=== PATIENT | male | born 1970 | race African-American/Black ===

== ENCOUNTER 2020-02-24 10:22 | Inpatient (IN) | payer MEDICAID, OTHER ==
[~2020-02-24] VITALS: Ht 185.4 cm; Wt 128.4 kg
[2020-02-24 12:03] LABS: BASOPHILS % 0.4 % (0.0-2.0); EOSINOPHILS % 0.1 % (0.0-5.0); HEMATOCRIT. 42.9 % (42.0-52.0); HEMOGLOBIN. 14.4 g/dL (14.0-18.0); LYMPHOCYTES % 14.3 % (20.0-50.0); MEAN CORPUSCULAR HEMOGLOBIN 30.6 pg (28.0-32.0); MEAN CORPUSCULAR VOLUME 91.2 fL (80.0-94.0); MONOCYTES % 9.6 % (2.0-8.0); NEUTROPHILS % 75.6 % (40.0-76.0); RED BLOOD CELL COUNT 4.71 mill/uL (4.7-6.1); RED CELL DISTRIBUTION WIDTH 13.8 % (11.6-14.6)
[2020-02-24 12:11] LABS: INR 1.4; PROTHROMBIN TIME 15.4 sec (9.6-11.0)
[2020-02-24] MEDS ORDERED: SODIUM CHLORIDE 0.9% 1,000 ML IV ONE (12:12)
[2020-02-24] MEDS ORDERED: HYDROCODONE/ACETAMINOPHEN 5/325MG TABLET PO ONE (12:15)
[2020-02-24 12:36] LABS: PLATELET 228 x1000/uL (130-400)
[2020-02-24] MEDS ORDERED: ONDANSETRON HCL 4MG/2ML INJ IV PRN (14:15)
[2020-02-24 14:19] LABS: CLARITY URINE CLEAR (CLEAR); COLOR URINE DARK YELLOW (YELLOW); KETONES URINE NEGATIVE (NEGATIVE); LEUKOCYTE ESTERASE URINE NEGATIVE (NEGATIVE); NITRITE URINE NEGATIVE (NEGATIVE); OCCULT BLOOD URINE NEGATIVE (NEGATIVE); PROTEIN URINE 1+ (NEGATIVE); SPECIFIC GRAVITY URINE 1.022 (1.005-1.030)
[2020-02-24 14:32] LABS: CHLORIDE 103 mEq/L (98-107)
[2020-02-24 14:42] LABS: CREATINE KINASE 57 IU/L (39-308)
[2020-02-24 14:48] LABS: *BARBITURATES SCREEN URINE NEGATIVE (NEGATIVE); *COCAINE SCREEN URINE NEGATIVE (NEGATIVE)
[2020-02-24 14:49] LABS: CANNABINOID URINE SCREEN PRESUMTIVE POSITIVE (NEGATIVE); METHADONE URINE SCREEN NEGATIVE (NEGATIVE); PHENCYCLIDINE URINE SCREEN NEGATIVE (NEGATIVE)
[2020-02-24 14:50] LABS: *AMPHETAMINES SCREEN URINE NEGATIVE (NEGATIVE); *BENZODIAZEPINES SCREEN URINE NEGATIVE (NEGATIVE); OPIATES URINE SCREEN NEGATIVE (NEGATIVE)
[2020-02-24] MEDS ORDERED: HEPARIN 5000 UNITS/ML VIAL IV ONE (15:00)
[2020-02-24] MEDS ORDERED: HEPARIN 5000 UNITS/ML VIAL IV PRN (15:00)
[2020-02-24] MEDS ORDERED: CEFTRIAXONE 1 G PREMIX 50 ML IV SCH (15:00)
[2020-02-24] MEDS: HEPARIN 25,000 UNITS PREMIX 500 ML IV PRN (15:01)
[2020-02-24] MEDS ORDERED: ALBUTEROL 6.7GM HFA INHALER ORI SCH (17:00)
[2020-02-24 20:30] VITALS: BP 131/85
[2020-02-24] MEDS ORDERED: IOHEXOL-350 100 ML BOTTLE ONE ×2 (22:31→23:08)
[2020-02-24 23:49] LABS: PARTIAL THROMBOPLASTIN TIME 40.5 sec (23.4-31.0)
[2020-02-25] VITALS: BP 116/85
[2020-02-25] MEDS: HEPARIN 5000 UNITS/ML VIAL IV PRN ×2 (00:11→18:58)
[2020-02-25 04:00] VITALS: BP 131/85
[2020-02-25] MEDS: HEPARIN 25,000 UNITS PREMIX 500 ML IV PRN ×3 (07:37→21:45)
[2020-02-25 07:40] LABS: BASOPHILS % 0.4 % (0.0-2.0); EOSINOPHILS % 0.6 % (0.0-5.0); HEMOGLOBIN. 12.9 g/dL (14.0-18.0); LYMPHOCYTES % 21.4 % (20.0-50.0); MEAN CORPUSCULAR HEMOGLOBIN 30.7 pg (28.0-32.0); MEAN CORPUSCULAR VOLUME 90.4 fL (80.0-94.0); MEAN PLATELET VOLUME 9.2 fl (7.4-10.4); MONOCYTES % 5.5 % (2.0-8.0); NEUTROPHILS % 72.1 % (40.0-76.0); PLATELET 250 x1000/uL (130-400); RED CELL DISTRIBUTION WIDTH 14.1 % (11.6-14.6)
[2020-02-25 07:52] LABS: CHLORIDE 99 mEq/L (98-107)
[2020-02-25 08:50] VITALS: BP 136/92
[2020-02-25] MEDS ORDERED: FUROSEMIDE 40MG/4ML VIAL IVP NR (09:45)
[2020-02-25] MEDS: CEFTRIAXONE 1 G PREMIX 50 ML IV SCH (09:58)
[2020-02-25] MEDS: ACETAMINOPHEN 325MG TABLET PO PRN (09:59)
[2020-02-25] MEDS: AZITHROMYCIN 500 MG TABLET PO SCH (11:26)
[2020-02-25] MEDS: HYDROCODONE/ACETAMINOPHEN 10/325MG TABLET PO PRN (12:00)
[2020-02-25 12:13] VITALS: BP 127/86
[2020-02-25 14:23] LABS: HEPATITIS B SURFACE ANTIGEN NEGATIVE
[2020-02-25 14:53] LABS: HEPATITIS A AB IGM NEGATIVE (NEGATIVE)
[2020-02-25 16:00] VITALS: BP 127/66
[2020-02-25 20:00] VITALS: BP 131/68
[2020-02-26] VITALS: BP 108/63
[2020-02-26] MEDS: HYDROCODONE/ACETAMINOPHEN 10/325MG TABLET PO PRN ×2 (00:16→15:07)
[2020-02-26 04:00] VITALS: BP 104/68
[2020-02-26 06:25] LABS: BASOPHILS % 0.3 % (0.0-2.0); EOSINOPHILS % 0.5 % (0.0-5.0); HEMOGLOBIN. 12.9 g/dL (14.0-18.0); MEAN CORPUSCULAR HEMOGLOBIN 30.8 pg (28.0-32.0); MEAN CORPUSCULAR VOLUME 90.9 fL (80.0-94.0); MEAN PLATELET VOLUME 9.2 fl (7.4-10.4); NEUTROPHILS % 69.2 % (40.0-76.0); PLATELET 252 x1000/uL (130-400); RED BLOOD CELL COUNT 4.18 mill/uL (4.7-6.1)
[2020-02-26 07:17] LABS: CHLORIDE 99 mEq/L (98-107)
[2020-02-26 08:00] VITALS: BP 116/84
[2020-02-26] MEDS: FUROSEMIDE 40MG/4ML VIAL IVP SCH (09:40)
[2020-02-26] MEDS: AZITHROMYCIN 500 MG TABLET PO SCH (09:40)
[2020-02-26] MEDS: CEFTRIAXONE 1 G PREMIX 50 ML IV SCH (09:40)
[2020-02-26] MEDS: ALBUTEROL (0.083%) 2.5MG/3ML NEB HHN SCH ×3 (10:25→14:30)
[2020-02-26] MEDS: HEPARIN 5000 UNITS/ML VIAL IV PRN (11:59)
[2020-02-26 12:00] VITALS: BP 134/73
[2020-02-26 16:00] VITALS: BP 129/87
[2020-02-26 20:00] VITALS: BP 130/78
[2020-02-26] MEDS: HEPARIN 25,000 UNITS PREMIX 500 ML IV PRN (22:30)
[2020-02-27] VITALS: BP 113/71
[2020-02-27 02:52] LABS: BASOPHILS % 0.6 % (0.0-2.0); EOSINOPHILS % 1.3 % (0.0-5.0); HEMATOCRIT. 39.8 % (42.0-52.0); HEMOGLOBIN. 13.1 g/dL (14.0-18.0); LYMPHOCYTES % 18.3 % (20.0-50.0); MEAN CORPUSCULAR HEMOGLOBIN 30.3 pg (28.0-32.0); MEAN CORPUSCULAR VOLUME 91.6 fL (80.0-94.0); MEAN PLATELET VOLUME 8.9 fl (7.4-10.4); MONOCYTES % 8.9 % (2.0-8.0); NEUTROPHILS % 70.9 % (40.0-76.0); PLATELET 261 x1000/uL (130-400); RED BLOOD CELL COUNT 4.34 mill/uL (4.7-6.1); RED CELL DISTRIBUTION WIDTH 14.1 % (11.6-14.6)
[2020-02-27 03:10] LABS: CHLORIDE 96 mEq/L (98-107)
[2020-02-27 04:00] VITALS: BP 128/86
[2020-02-27 08:00] VITALS: BP 124/78
[2020-02-27] MEDS: ALBUTEROL (0.083%) 2.5MG/3ML NEB HHN SCH ×4 (08:15→22:46)
[2020-02-27] MEDS: CEFTRIAXONE 1 G PREMIX 50 ML IV SCH (08:57)
[2020-02-27] MEDS: FUROSEMIDE 40MG/4ML VIAL IVP SCH (08:57)
[2020-02-27] MEDS: AZITHROMYCIN 500 MG TABLET PO SCH (08:58)
[2020-02-27] MEDS: HEPARIN 25,000 UNITS PREMIX 500 ML IV PRN ×2 (11:01→21:16)
[2020-02-27] MEDS ORDERED: POTASSIUM CHLORIDE 20MEQ TABLET SR PO NR (11:30)
[2020-02-27] MEDS: LOSARTAN POTASSIUM 25 MG TABLET PO SCH (11:51)
[2020-02-27 12:00] VITALS: BP 122/74
[2020-02-27 16:00] VITALS: BP 121/73
[2020-02-27 20:00] VITALS: BP 114/74
[2020-02-27] MEDS: HEPARIN 5000 UNITS/ML VIAL IV PRN (20:58)
[2020-02-27] MEDS: CARVEDILOL 3.125 MG TABLET PO SCH (23:21)
[2020-02-27] MEDS: ACETAMINOPHEN 325MG TABLET PO PRN (23:22)
[2020-02-28] VITALS: BP 145/73
[2020-02-28] MEDS: ALBUTEROL (0.083%) 2.5MG/3ML NEB HHN SCH (02:28)
[2020-02-28 03:12] LABS: BASOPHILS % 1.1 % (0.0-2.0); CHLORIDE 99 mEq/L (98-107); EOSINOPHILS % 0.7 % (0.0-5.0); LYMPHOCYTES % 18.4 % (20.0-50.0); MEAN CORPUSCULAR HEMOGLOBIN 30.4 pg (28.0-32.0); MEAN PLATELET VOLUME 8.4 fl (7.4-10.4); MONOCYTES % 9.8 % (2.0-8.0); PLATELET 269 x1000/uL (130-400); RED BLOOD CELL COUNT 4.28 mill/uL (4.7-6.1); RED CELL DISTRIBUTION WIDTH 14.2 % (11.6-14.6)
[2020-02-28 04:00] VITALS: BP 116/75
[2020-02-28] MEDS: HEPARIN 25,000 UNITS PREMIX 500 ML IV PRN (07:41)
[2020-02-28 08:00] VITALS: BP 95/72
[2020-02-28] MEDS: AZITHROMYCIN 500 MG TABLET PO SCH (08:34)
[2020-02-28] MEDS: CEFTRIAXONE 1 G PREMIX 50 ML IV SCH (08:34)
[2020-02-28] MEDS: FUROSEMIDE 40MG/4ML VIAL IVP SCH (08:34)
[2020-02-28] MEDS: LOSARTAN POTASSIUM 25 MG TABLET PO SCH (08:35)
[2020-02-28] MEDS: CARVEDILOL 3.125 MG TABLET PO SCH (08:35)
[2020-02-28] MEDS ORDERED: SODIUM BICARBONATE 8.4% MEQ/ML 50ML VIAL IV ONE (10:09)
[2020-02-28] MEDS ORDERED: EPINEPHRINE 0.1MG/ML (1:10,000) 10ML SYR ONE (10:09)
[2020-02-28 13:06] LABS: ATYPICAL P-ANCA <1:20 titer (Neg:<1:20); CYTOPLASMIC C-ANCA <1:20 titer (Neg:<1:20); PERINUCLEAR P-ANCA <1:20 titer (Neg:<1:20)
[2020-02-28 14:08] LABS: ANTI-MYELOPEROXIDASE AB < 9.0 U/mL (0.0-9.0); ANTI-PROTEINASE 3 ABS 14.9 U/mL (0.0-3.5)
[2020-02-29 04:13] LABS: DRVVT LA 46.8 sec (0.0-47.0); LUPUS ANTICOAG INTERPRETATION Comment: (.); PTT-LA 47.6 sec (0.0-51.9)
== END 2020-02-28 10:09 | disposition expired | DRG 134 ==
LOC: ER 10:22 → 7WST 14:28 → EDBEDREQ 14:30 → EDBEDREQTM 14:30 → EDBEDREQSVC 14:30 → ENRESERV 19:19 → 5WST 02-25 16:50
PROVIDERS: ADMIT Internal Medicine; ATTEND Internal Medicine
DX: I26.02 Saddle embolus of pulmonary artery with acute cor pulmonale (principal); J96.01 Acute respiratory failure with hypoxia; E43 Unspecified severe protein-calorie malnutrition; I27.20 Pulmonary hypertension, unspecified; D68.69 Other thrombophilia; I50.30 Unspecified diastolic (congestive) heart failure; E87.1 Hypo-osmolality and hyponatremia; E66.01 Morbid (severe) obesity due to excess calories; I82.403 Acute embolism and thrombosis of unspecified deep veins of lower extremity, bilateral; K75.9 Inflammatory liver disease, unspecified; D72.829 Elevated white blood cell count, unspecified; F12.90 Cannabis use, unspecified, uncomplicated; Z20.828 Contact with and (suspected) exposure to other viral communicable diseases; Z68.37 Body mass index [BMI] 37.0-37.9, adult; Z79.899 Other long term (current) drug therapy
CPT/HCPCS: 36415; 71045; 71275; 76700; 80048; 80053; 80305; 81003; 82550; 82962; 83036; 83520; 83880; 84484; 85025; 85384; 85613; 85651; 85732; 86038; 86140; 86256; 86705; 86709; 86803; 87340; 93005; 93306; 93970; 96365; 99285; J0696; J1644; J1940; J7030; Q9967; U0003-CS